=== PATIENT | female | born 1985 | race American Indian/Alaskan Native ===

== ENCOUNTER 2017-02-26 21:59 | Emergency (ER) | payer BC ==
[2017-02-27 00:30] LABS: Basophils % (Auto) 0.4 % (0.0-1.8); Eosinophils % (Auto) 1.2 % (0.0-4.3); Hematocrit 39.1 % (30.3-42.9); Hemoglobin 12.8 gm/dl (10.1-14.3); Mean Corpuscular HGB Conc 33 % (30-34); Mean Corpuscular Hemoglobin 30 pg (28-32); Mean Corpuscular Volume 90 fl (79-97); Platelet Count 226 K/mm3 (140-440); Red Blood Count 4.35 M/mm3 (3.65-5.03); Red Cell Distribution Width 14.7 % (13.2-15.2); White Blood Count 9.1 K/mm3 (4.5-11.0)
[2017-02-27 00:38] LABS: INR 1.01 (0.87-1.13)
[2017-02-27 00:47] LABS: Albumin/Globulin Ratio 1.1 %; BUN/Creatinine Ratio 11.42; Blood Urea Nitrogen 8 mg/dL (7-17); Calcium 9.5 mg/dL (8.4-10.2); Carbon Dioxide 24 mmol/L (22-30); Chloride 102.1 mmol/L (98-107); Glucose 87 mg/dL (65-100); Sodium 138 mmol/L (137-145); Total Protein 7.6 g/dL (6.3-8.2)
[2017-02-27 00:59] LABS: Alanine Aminotransferase 12 units/L (7-56); Alkaline Phosphatase 37 units/L (35-129)
[2017-02-27 01:00] LABS: Anion Gap 17 mmol/L; Potassium 5.4 mmol/L (3.6-5.0)
--- NOTE | 2017-02-27 01:04 | Cat Scan Report ---
FINAL REPORT EXAM: CT HEAD/BRAIN WO CON HISTORY: h/a fall with loc TECHNIQUE: Noncontrast CT axial images of the brain. PRIORS: None. FINDINGS: No parenchymal mass, mass effect, hemorrhage, midline shift or hydrocephalus. No evidence of acute cortical infarct. No abnormal, extra-axial fluid or air collection. Osseous calvarium grossly intact. IMPRESSION: 1. No acute intracranial findings.
--- NOTE | 2017-02-27 01:22 | Cat Scan Report ---
FINAL REPORT PROCEDURE: CT CERVICAL SPINE WO CON TECHNIQUE: Computerized tomography of the cervical spine was performed from the skull base to T1 without contrast material. HISTORY: fall with loc COMPARISON: No prior studies are available for comparison. FINDINGS: The alignment of the vertebral segments is normal. The heights of the vertebral bodies and the disc spaces are maintained. No acute fracture or dislocation of the cervical spine. Spinal canal is adequate at all levels. IMPRESSION: Normal CT cervical spine..
[2017-02-27 05:21] VITALS: BP 111/80
[2017-02-27 06:26] LABS: Alanine Aminotransferase 10 units/L (7-56); Albumin 4.3 g/dL (3.9-5); Albumin/Globulin Ratio 1.2 %; Alkaline Phosphatase 44 units/L (35-129); Anion Gap 18 mmol/L; Blood Urea Nitrogen 7 mg/dL (7-17); Calcium 9.7 mg/dL (8.4-10.2); Carbon Dioxide 23 mmol/L (22-30); Chloride 102.6 mmol/L (98-107); Glucose 89 mg/dL (65-100); Potassium 3.8 mmol/L (3.6-5.0); Sodium 140 mmol/L (137-145)
--- NOTE | 2017-02-27 06:46 | Emergency Department Report ---
HPI - General Chief Complaint: Headache Time Seen by Provider: 02/27/17 06:39 - HPI HPI: Patient fell backwards yesterday complaining of severe headache. Progressively improving, mild neck discomfort. No change of vision. Patient able to ambulate without difficulty. Patient and multiple all extremities without difficulty. Patient has not taken any medication for symptoms. Denies any alleviating or exacerbating factors. ED Past Medical Hx - Past Medical History Previous Medical History?: No - Surgical History Past Surgical History?: No - Family History Family history: hypertension - Social History Smoking Status: Never Smoker Substance Use Type: None - Medications Home Medications: Home Medications Medication Instructions Recorded Confirmed Last Taken Type Butalb/Acetamin/Caff 50-325-40 1 tab PO Q6HR PRN #14 tab 02/27/17 Unknown Rx [Fioricet] ED Review of Systems ROS: Stated complaint: HEAD PAIN Other details as noted in HPI Comment: All other systems reviewed and negative Eyes: as per HPI ENT: as per HPI Musculoskeletal: other (neck pain) Neurological: headache Physical Exam - Physical Exam Vital Signs: Vital Signs 02/26/17 02/26/17 02/27/17 23:24 23:45 05:20 Temperature 99.0 F 99 F 98.1 F Pulse Rate 68 68 68 Respiratory 18 18 18 Rate Blood Pressure 124/90 111/80 Blood Pressure 124/90 [Right] O2 Sat by Pulse 99 99 98 Oximetry Physical Exam: - General Limitations: No Limitations General appearance: alert, in no apparent distress - Head Head exam: Present: atraumatic, normocephalic - Eye Eye exam: Present: normal appearance - ENT ENT exam: Present: mucous membranes moist - Neck Neck exam: Present: normal inspection - Respiratory Respiratory exam: Present: normal lung sounds bilaterally. Absent: respiratory distress - Cardiovascular Cardiovascular Exam: Present: regular rate, normal rhythm. Absent: systolic murmur, diastolic murmur, rubs, gallop - GI/Abdominal GI/Abdominal exam: Present: soft, normal bowel sounds - Extremities Exam Extremities exam: Present: normal inspection - Back Exam Back exam: Present: normal inspection - Neurological Exam Neurological exam: Present: alert, oriented X3, CN II-XII intact - Psychiatric Psychiatric exam: normal affect - Skin Skin exam: Present: warm, dry, intact, normal color. Absent: rash ED Course Vital Signs 02/26/17 02/26/1702/27/17 23:24 23:45 05:20 Temperature 99.0 F 99 F 98.1 F Pulse Rate 68 68 68 Respiratory 18 18 18 Rate Blood Pressure 124/90 111/80 Blood Pressure 124/90 [Right] O2 Sat by Pulse 99 99 98 Oximetry ED Medical Decision Making - Lab Data Result diagrams: 02/27/17 00:06 02/27/17 05:48 Critical care attestation.: If time is entered above; I have spent that time in minutes in the direct care of this critically ill patient, excluding procedure time. ED Disposition Clinical Impression: Headache Qualifiers: Headache type: post-traumatic Headache chronicity pattern: acute headache Intractability: not intractable Qualified Code(s): G44.319 - Acute post- traumatic headache, not intractable Disposition: DC-01 TO HOME OR SELFCARE Is pt being admited?: No Does the pt Need Aspirin: No Condition: Stable Prescriptions: Butalb/Acetamin/Caff 50-325-40 [Fioricet] 1 tab PO Q6HR PRN #14 tab PRN Reason: Headache Referrals: ALAN PERALTA MD [Primary Care Provider] - 3-5 Days
== END 2017-02-27 06:55 | disposition home or self-care (01) ==
LOC: ED 21:59
DX: G44.319 Acute post-traumatic headache, not intractable (principal)
CPT/HCPCS: 36415; 70450; 72125; 80053; 85025; 85610; 93005; 93010